=== PATIENT | female | born 1990 | race Native Hawaiian/Other Pacific Islander ===

== ENCOUNTER 2017-09-17 14:34 | Emergency (ER) | payer OTHER ==
[~2017-09-17] VITALS: Ht 157.5 cm; Wt 60.3 kg
== END 2017-09-17 15:59 | disposition home or self-care (01) ==
LOC: ED 14:34
DX: S42.032A Displaced fracture of lateral end of left clavicle, initial encounter for closed fracture (principal); V80.010A Animal-rider injured by fall from or being thrown from horse in noncollision accident, initial encounter; Y92.89 Other specified places as the place of occurrence of the external cause
CPT/HCPCS: 99283

== ENCOUNTER 2018-12-12 10:13 | Emergency (ER) | payer OTHER ==
[~2018-12-12] VITALS: Ht 157.5 cm; Wt 73.5 kg
[2018-12-12 10:20] VITALS: TEMP 98
[2018-12-12] MEDS ORDERED: PRENATAL1 T10 PO (10:29)
[2018-12-12] MEDS ORDERED: SM OMEPRAZOLE20 MG PO (10:29)
[2018-12-12 11:05] LABS: PLATELET COUNT 288 K/uL (152-353)
[2018-12-12 11:16] LABS: POTASSIUM 3.2 mmol/L (3.6-5.2)
[2018-12-12 12:25] VITALS: BP 128/81
== END 2018-12-12 12:25 | disposition home or self-care (01) ==
LOC: ED 10:13
PROVIDERS: Emergency Medicine
DX: O99.013 Anemia complicating pregnancy, third trimester (principal); Z3A.28 28 weeks gestation of pregnancy
CPT/HCPCS: 36415; 80053; 85027; 99284

== ENCOUNTER 2021-12-04 03:09 | Emergency (ER) | payer OTHER ==
[~2021-12-04] VITALS: Ht 157.5 cm; Wt 72.6 kg
[~2021-12-04 03:09] MED LIST: PRENATAL1 T10 PO; SM OMEPRAZOLE20 MG PO
[2021-12-04 04:26] VITALS: BP 121/83; TEMP 99.5
== END 2021-12-04 04:26 | disposition home or self-care (01) ==
LOC: ED 03:09
DX: J06.9 Acute upper respiratory infection, unspecified (principal); R50.9 Fever, unspecified; Z20.822 Contact with and (suspected) exposure to COVID-19
CPT/HCPCS: 87502; 87635; 87651; 96372; 99283; J2550; U0003